=== PATIENT | female | born 1990 ===

== ENCOUNTER 2018-03-17 18:13 | Inpatient (IN) | payer OTHER ==
[~2018-03-17] VITALS: Ht 167.6 cm; Wt 77.1 kg
[2018-03-17] MEDS ORDERED: PRENATAL TABLE1 EAC1 PO (18:50)
== END 2018-03-20 18:09 | DRG 775 ==
LOC: LDR 18:13 → OB/GYN 03-18 13:34
PROC: 4A1HXCZ Monitoring of Products of Conception, Cardiac Rate, External Approach (ICD-10-PCS; 2018-03-17)
PROC: 10E0XZZ Delivery of Products of Conception, External Approach (ICD-10-PCS; principal; 2018-03-18)
PROC: 0HQ9XZZ Repair Perineum Skin, External Approach (ICD-10-PCS; 2018-03-18)
DX: O70.0 First degree perineal laceration during delivery (principal); Z3A.37 37 weeks gestation of pregnancy; Z37.0 Single live birth